=== PATIENT | female | born 1965 | race American Indian/Alaskan Native ===

== ENCOUNTER 2018-02-10 08:53 | Day surgery (SDC) | payer OTHER ==
[2018-02-10] MEDS ORDERED: NACL 0.9% 1000 ML 1,000 ML IV SCH (10:00)
--- NOTE | 2018-02-10 11:30 | Anesthesia Day of Surgery ---
Anesthesia Day of Surgery - Day of Surgery Patient Examined: Yes Patient H&P Reviewed: Yes Patient is NPO: Yes
--- NOTE | 2018-02-10 11:30 | Anesthesia Consultation ---
Anesthesia Consult and Med Hx Date of service: 02/10/18 - Airway Anesthetic Teeth Evaluation: Good ROM Head & Neck: Adequate Mental/Hyoid Distance: Adequate Mallampati Class: Class II Intubation Access Assessment: Probably Good - Pulmonary Exam CTA: Yes - Cardiac Exam Cardiac Exam: RRR - Pre-Operative Health Status ASA Pre-Surgery Classification: ASA3 Proposed Anesthetic Plan: MAC - Cardiovascular System Hx Hypertension: Yes - Endocrine Hx Non-Insulin Dependent Diabetes: Yes - Other Systems Hx Obesity: Yes
[2018-02-10] MEDS ORDERED: DIPRIVAN 10 MG/ML IV ONE ×2 (11:55→11:56)
[2018-02-10] MEDS ORDERED: XYLOCAINE 1% 20 mL ONE (11:56)
[2018-02-10] MEDS ORDERED: WATER FOR IRRIG STERILE IR ONE (11:57)
--- NOTE | 2018-02-10 12:23 | Short Stay Summary ---
Short Stay Documentation Date of service: 02/10/18 Narrative H&P: the patient presents for screening colonoscopy, no prior studies - History Past Medical History: diabetes, other (Morbid obesity, large non reducible ventral hernia) Past Surgical History: No surgical history Social history: lives with family, no smoking, no alcohol abuse - Allergies and Medications Current Medications: Allergies shellfish derived Allergy (Severe, Verified 02/10/18 10:00) Anaphylaxis TONGUE SWELLING, RASH, CAN'T BREATH Home Medications Medication Instructions Recorded Confirmed Last Taken Type AtorvaSTATin 1 tab PO DAILY 02/09/18 02/10/18 02/02/18 History Glipizide 1 tab PO DAILY 02/09/18 02/10/18 02/09/18 History Valsartan-Hctz 160-12.5 mg Tab 1 tab PO DAILY 02/09/18 02/10/18 02/10/18 History metFORMIN 1 tab PO AC 02/09/18 02/10/18 02/09/18 History Active Medications Sodium Chloride (Nacl 0.9% 1000 Ml) 1,000 mls @ 50 mls/hr IV DIRECT GRACIELA Last Admin: 02/10/18 09:50 Dose: 50 mls/hr - Physical exam General appearance: no acute distress, well-nourished, other (Morbidly obese) Integumentary: no rash, no growths HEENT: Atraumatic, PERRLA, EOMI, Mucous membr. moist/pink Lungs: Clear to auscultation, Normal air movement Breasts: deferred Heart: Regular rate, Normal S1, Normal S2, No murmurs Gastrointestinal: normal, no tenderness, no distended, no masses, no organomegaly, obese, other (Large non reducible hernia above the umbilicus) Female Genitourinary: deferred Rectal Exam: normal exam-external/orifice, normal rectal tone, no mass Extremities: no ischemia, pulses intact, pulses symmetrical, No edema, normal temperature, normal color, Full ROM Neurological: Normal gait, Normal speech, Strength at 5/5 X4 ext, Normal tone, Sensation intact, Cranial nerves 3-12 NL - Brief post op/procedure progress note Date of procedure: 02/10/18 Findings: see dictation Estimated blood loss: none Pathology: none Condition: stable - Disposition Condition at discharge: Good Disposition: DC-01 TO HOME OR SELFCARE - Discharge Diagnoses (1) Colon cancer screening Status: Acute Short Stay Discharge Plan Activity: other (no driving for 24 hours, call office in a week for surgical referral advice) Weight Bearing Status: Weight Bear as Tolerated Diet: regular Follow up with: ANU TORRES MD [Primary Care Provider] - 7 Days
--- NOTE | 2018-02-10 12:27 | Operative Report ---
Operative Report Operative Report: Date of procedure: 02/10/2018 Preprocedure diagnosis: Colon cancer screening, no prior studies Post procedure diagnosis: Normal exam to the mid transverse colon. Large ventral hernia with obstruction scope for proximal examination Procedure: Colonoscopy to the mid transverse colon Endoscopist: Dr. Faulkner Anesthesia: Monitored anesthesia care per anesthesia department Estimated blood loss: 0 Medications: Monitored anesthesia care. See separate report by anesthesia for details. After careful discussion of the nature and purpose of the procedure as well as details of the technique risks benefits and alternatives the patient gave consent. Please see recent history and physical from the office. The patient was placed in the left lateral decubitus position and medicated per anesthesia. A rectal exam was performed sphincter tone was normal there were no masses palpable. The Moe Delon 570 scope was passed transanally and advanced under continuous direct vision without difficulty to the transverse colon. The colon was well prepared. The tip of the scope entered her ventral hernia at this point and could not be safely progressed to inspect the rest of the right colon. The distal transverse colon, descending colon, and sigmoid colon were normal. The rectum was normal on forward and retroflexed views. The procedure was well- tolerated overall and the patient was observed in recovery. Conclusions: Normal colonoscopy to the mid transverse. Obstruction from a nonreducible ventral hernia precluded advancement of the scope to the cecum.. Plan: Surgical evaluation for hernia repair and possible bariatric surgery. She will need a barium enema prior to surgical evaluation. The patient is to call the office in the next week for arrangements Signed electronically: Florian Faulkner M.D.
[2018-02-10 12:52] VITALS: BP 148/96
== END 2018-02-10 08:54 | disposition home or self-care (01) ==
LOC: GIO 08:53
PROVIDERS: ATTEND Internal Medicine Gastroenterology
DX: Z12.11 Encounter for screening for malignant neoplasm of colon (principal); K43.9 Ventral hernia without obstruction or gangrene; E11.9 Type 2 diabetes mellitus without complications; I10 Essential (primary) hypertension; E66.9 Obesity, unspecified; Z68.42 Body mass index [BMI] 45.0-49.9, adult; Z90.49 Acquired absence of other specified parts of digestive tract; Z85.3 Personal history of malignant neoplasm of breast; Z98.891 History of uterine scar from previous surgery; Z91.013 Allergy to seafood
CPT/HCPCS: 45378; 82962; J2704; J7030